=== PATIENT | female | born 1955 | race African-American/Black ===

== ENCOUNTER 2019-04-26 17:50 | Inpatient (IN) | payer BC ==
[~2019-04-26] VITALS: Ht 152.4 cm; Wt 95.7 kg
[2019-04-26 17:50] VITALS: BP 190/82
[2019-04-26] MEDS ORDERED: KEFLEX500 M1 PO (17:56)
[2019-04-26] MEDS ORDERED: AMLODIPINE BESY10 MG PO (17:57)
[2019-04-26 18:23] LABS: URINE BILIRUBIN NEGATIVE (Negative); URINE BLOOD 2+ (Negative); URINE CLARITY CLEAR; URINE COLOR YELLOW; URINE GLUCOSE-RANDOM* NEGATIVE (Negative); URINE KETONES NEGATIVE (Negative); URINE LEUKOCYTES-REFLEX 3+ (Negative); URINE NITRITE-REFLEX NEGATIVE (Negative); URINE PROTEIN (DIPSTICK) NEGATIVE (Negative); URINE SPECIFIC GRAVITY <= 1.005 (1.005-1.035); URINE UROBILINOGEN 0.2 E.U./dl (0.2-1.0)
[2019-04-26 18:28] LABS: CASTS None Seen /LPF (None Seen); CRYSTALS None Seen /LPF (None Seen); SQUAMOUS 0-3 Few /LPF (0-3)
[2019-04-26 18:31] LABS: BACTERIA-REFLEX None Seen /HPF (None Seen); URINE RBC 0-2 Rare /HPF (0-2)
[2019-04-26 18:32] LABS: AMORPHOUS URATES Few /LPF (None Seen)
[2019-04-26] MEDS ORDERED: MOBIC7.5 MG PO (19:04)
[2019-04-26] MEDS ORDERED: BYDUREON B2 MG/0.85 SUBQ (19:05)
[2019-04-26] MEDS ORDERED: GLUCOPHAGE XR500 MG PO (19:05)
[2019-04-26 19:10] LABS: BASOPHILS 1.3 % (0.0-2.0); EOSINOPHILS 1.4 % (0.0-3.0); HEMATOCRIT 33.7 % (37.0-47.0); HEMOGLOBIN 11.2 gm/dL (12.0-15.0); LYMPHOCYTES 9.7 % (24.0-44.0); MCH 28.1 pg (26.0-34.0); MCHC 33.3 g/dL (28.0-37.0); MCV 84.3 fL (80.0-100.0); MONOCYTES 7.2 % (1.0-8.0); PLATELET COUNT 332 thou/uL (150-400); POLYS 80.4 % (36.0-66.0); RDW 12.8 % (10.5-14.5)
[2019-04-26 19:32] LABS: CALCIUM 9.1 mg/dL (8.5-10.1); POTASSIUM 4.1 mmol/L (3.5-5.1)
[2019-04-26 19:36] LABS: ALBUMIN 2.7 g/dL (3.4-5.0); TOTAL BILIRUBIN 0.2 mg/dL (<0.1-1.0); TOTAL PROTEIN 7.9 g/dL (6.4-8.2)
[2019-04-26 22:40] VITALS: BP 149/70
[2019-04-27] VITALS: BP 140/69
--- NOTE | 2019-04-27 03:32 | NUR ---
PT ARRIVED ON THE UNIT @2315 FROM ER WITH C/O RIGHT FLANK PAIN. MEDS GIVEN AND FLUIDS INFUSING. VSS. PT A&O X4 DENIES N/V AT THIS SHIFT. SIS AT BEDSIDE FOR THE NIGHT. POC DONE AND ABX INFUSING WILL CONTINUE TO MONITOR TILL EOS
[2019-04-27 05:53] LABS: HEMATOCRIT 35.3 % (37.0-47.0); HEMOGLOBIN 11.5 gm/dL (12.0-15.0); MCHC 32.7 g/dL (28.0-37.0); MCV 85.5 fL (80.0-100.0); RBC 4.13 mil/uL (4.20-5.00); RDW 13.4 % (10.5-14.5); WBC 7.5 thou/uL (4.0-11.0)
[2019-04-27 06:00] VITALS: BP 174/95
[2019-04-27 06:30] LABS: ANION GAP 8 mmol/L (7-16); BUN 9 mg/dL (7-18); CHLORIDE 101 mmol/L (98-107); CHOLESTEROL 126 mg/dL (<200); CO2 27 mmol/L (21-32); GLUCOSE 299 mg/dL (74-106); HDL CHOLESTEROL 43 mg/dL (>40); LDL CHOLESTEROL 68 mg/dL (<100); POTASSIUM 4.2 mmol/L (3.5-5.1); SODIUM 136 mmol/L (136-145); TC:HDL 2.9 Ratio (Not establshd); TRIGLYCERIDE 75 mg/dL (<150); VLDL 15 mg/dL (<40)
[2019-04-27 08:30] VITALS: BP 162/83
--- NOTE | 2019-04-27 10:44 | NUR ---
Assess due to nutrition screening risk trigger. Admit with pyelonephritis. Pt laying with eyes closed, some grimacing. States appetite down about 2 weeks with 10 lb wt loss. Not feeling well. BG are elevated 262, and A1C is pending. Pt did not want to discuss diet or further questions. Other than extreme class III obesity with BMI of 41.2, low nutrition risk at this time.
[2019-04-27 16:50] VITALS: BP 157/80
--- NOTE | 2019-04-27 18:05 | NUR ---
PT ASSESSED AT START OF SHIFT. STILL HAVING FREQUENCY W/ DYSURIA BUT SOME BETTER. URINE CLEAR, YELLOW. DECLINED PYRIDIUM. DOES HAVE SOME STRESS INCONTINENCE SO OUTPUT NOT ACCURATE. IV CHANGED BY FLOORING PROFESSIONAL TO LT AC. MORPHINE TO HELP W/ PAIN.
[2019-04-27 23:50] VITALS: BP 164/94
[2019-04-28 01:11] LABS: GLYCOHEMOGLOBIN (HGB A1C) 8.4 % (4.8-5.6)
[2019-04-28 04:00] VITALS: BP 157/81
--- NOTE | 2019-04-28 06:33 | NUR ---
ASSUMED CARE OF PT @1900 PT. A&OX4 AT THIS SHIFT. FLUIDS INFUSING AND PAIN MEDS GIVEN FOR MANAGEMENT SEE EMAR. PT HAS URINE FREG UP TO BEDSIDE COMMODE @ NIGHT. POC DONE AND SIS @ BEDSIDE WILL CONTINUE TO MONITOR TILL EOS
[2019-04-28 08:10] VITALS: BP 161/74
--- NOTE | 2019-04-28 15:31 | NUR ---
Assumed care of pt at 0700. Pt a&o x4. Pain controlled with prn pain meds. New IV placed by IV team. IVF and antibiotics infusing. Family at bedside. Call light within reach.
[2019-04-28 17:22] VITALS: BP 160/102
[2019-04-28 22:08] VITALS: BP 150/85
[2019-04-29] VITALS (8 sets, daily range): BP systolic 156–183; BP diastolic 60–99
[2019-04-29 05:58] LABS: HEMOGLOBIN 11.3 gm/dL (12.0-15.0); MCH 27.9 pg (26.0-34.0); MCHC 33.2 g/dL (28.0-37.0); MCV 84.2 fL (80.0-100.0); RBC 4.04 mil/uL (4.20-5.00); WBC 5.3 thou/uL (4.0-11.0)
[2019-04-29 06:13] LABS: ALBUMIN 2.4 g/dL (3.4-5.0); CALCIUM 8.7 mg/dL (8.5-10.1); CREATININE 0.9 mg/dL (0.6-1.0); MAGNESIUM 1.6 mg/dL (1.8-2.4); POTASSIUM 4.2 mmol/L (3.5-5.1); TOTAL BILIRUBIN 0.2 mg/dL (<0.1-1.0); TOTAL PROTEIN 6.5 g/dL (6.4-8.2)
--- NOTE | 2019-04-29 08:41 | NUR ---
ASSUMED CARE AT 1900, ASSESSMENT COMPLETED. PT REPORTS MODERATE RIGHT FLANK PAIN THAT RADIATES TO RIGHT SIDE OF ABD; WELL-CONTROLLED WITH IV MORPHINE. DENIES NAUSEA OR SOB. UP TO BSC BY SELF; STEADY ON FEET, CALLS APPROPRIATELY FOR FURTHER NEEDS. BP ELEVATED THIS AM R/T TO PAIN, GIVEN IV PAIN MEDS. NO OTHER CONCERNS, SHIFT REPORT GIVEN AT 0700.
--- NOTE | 2019-04-29 12:11 | NUR ---
INITIAL ASSESSMENT: Pt evaluated for d/c planning needs. Reviewed chart and spoke with nurse, pt and pt's sister. Pt is alert and oriented. Pt lives in house with family and was independent with ADL's prior to admission to the hospital. Pt is employed outside the home and is still driving. Pt has a walking stick which she uses occasionally. Pt has no other DME. Pt has not had home health in the past. Pt plans on returning home on d/c from hospital. Will remain available to assist as needed.
[2019-04-29] MEDS ORDERED: HYDROCODON-ACE1 EAC7 PO (14:56)
[2019-04-29] MEDS ORDERED: SENNA-TIME S T1 EACH PO (14:56)
[2019-04-29] MEDS ORDERED: LEVAQUIN 500 M500 M2 PO (14:56)
[2019-04-29] MEDS ORDERED: ACETAMINOPHEN325 M1 PO (14:56)
--- NOTE | 2019-04-29 20:19 | NUR ---
PT TAKEN VIA W/C TO FAMILY CAR DISCHARGED WITH SISTER. IV ACSESS DCD ALL BELONGINGS TAKEN WITH PATIENT.
== END 2019-04-29 20:15 | disposition home or self-care (01) | DRG 690 ==
LOC: ER 17:50 → EROBS 21:43 → 4E 21:43
PROVIDERS: Emergency Medicine; Nurse Practitioner Family; ADMIT Hospitalist
DX: N12 Tubulo-interstitial nephritis, not specified as acute or chronic (principal); E11.9 Type 2 diabetes mellitus without complications; I10 Essential (primary) hypertension; M19.90 Unspecified osteoarthritis, unspecified site; E78.5 Hyperlipidemia, unspecified; K59.00 Constipation, unspecified; Z88.8 Allergy status to other drugs, medicaments and biological substances; Z87.891 Personal history of nicotine dependence; Z79.899 Other long term (current) drug therapy
CPT/HCPCS: 10084; 10183

== ENCOUNTER 2020-03-22 01:30 | Emergency (ER) | payer BC ==
[~2020-03-22] VITALS: Ht 152.4 cm; Wt 99.8 kg
[~2020-03-22 01:30] MED LIST: ACETAMINOPHEN325 M1 PO; AMLODIPINE BESY10 MG PO; BYDUREON B2 MG/0.85 SUBQ; GLUCOPHAGE 500 MG PO; HYDROCODON-ACE1 EAC7 PO; KEFLEX500 M1 PO; LEVAQUIN 500 M500 M2 PO; MOBIC7.5 MG PO; SENNA-TIME S T1 EACH PO
[2020-03-22] MEDS ORDERED: LISINOPRIL2.5 MG PO (01:51)
[2020-03-22] MEDS ORDERED: OZEMPIC PO (01:53)
[2020-03-22] MEDS ORDERED: METOPROLOL PO (01:55)
[2020-03-22] MEDS ORDERED: HYDROCHLOROTHIA25 M2 PO (01:55)
[2020-03-22] MEDS ORDERED: ZTLIDO1 EACH TOP ×2 (02:46→02:50)
[2020-03-22 02:52] VITALS: BP 190/85
== END 2020-03-22 02:56 | disposition home or self-care (01) ==
LOC: ER 01:30
DX: M54.5 Low back pain (principal); G89.29 Other chronic pain; E11.9 Type 2 diabetes mellitus without complications; I10 Essential (primary) hypertension; E78.5 Hyperlipidemia, unspecified; M19.90 Unspecified osteoarthritis, unspecified site; Z98.51 Tubal ligation status; Z79.899 Other long term (current) drug therapy